=== PATIENT | female | born 1955 | race Caucasian/White ===

== ENCOUNTER 2024-07-04 10:20 | Outpatient (CLI) | payer MEDICARE | END 2024-07-04 10:21 | disposition home or self-care (01) | LOC: LAB.R 10:20 | PROVIDERS: ATTEND Registered Nurse | DX: R19.7 Diarrhea, unspecified (principal); R10.9 Unspecified abdominal pain | CPT/HCPCS: 87045; 87046; 87177; 87209; 87329; 87427 ==